=== PATIENT | female | born 1985 | race Caucasian/White ===

== ENCOUNTER 2017-06-18 20:46 | Emergency (ER) | payer BC ==
--- NOTE | 2017-06-18 22:43 | ER Document Report ---
ED General - General Chief Complaint: Ear Pain Stated Complaint: BILATERAL EAR PAIN Time Seen by Provider: 06/18/17 22:34 Notes: Patient is a pleasant 31-year-old female who presents for complaints of congestion in her ears. Patient says that she felt as if her ears are impacted. She bought a type of Q-tips patient is on for cleaning her ears. She feels that her ear canals became more irritated with this now she has pressure and pain behind both ears is worse than the right. No fevers. No vomiting. No cough. No other complaints at this time. TRAVEL OUTSIDE OF THE [place] IN LAST 30 DAYS: No - Related Data Allergies/Adverse Reactions: No Known Allergies Allergy (Verified 06/18/17 21:21) Past Medical History - Social History Smoking Status: Current Every Day Smoker Chew tobacco use (# tins/day): No Frequency of alcohol use: None Drug Abuse: None Family History: Reviewed & Not Pertinent Patient has suicidal ideation: No Patient has homicidal ideation: No Renal/ Medical History: Denies: Hx Peritoneal Dialysis - Immunizations Hx Diphtheria, Pertussis, Tetanus Vaccination: Yes Review of Systems - Review of Systems Notes: My Normal Review Basic REVIEW OF SYSTEMS: CONSTITUTIONAL : Denies fever, chills, or sweats. Denies recent illness. EENT: Ear Pain ALL OTHER SYSTEMS REVIEWED AND NEGATIVE. Physical Exam - Vital signs Vitals: Temp Pulse Resp BP Pulse Ox 98.3 F 85 18 144/94 H 98 06/18/17 21:25 06/18/17 21:25 06/18/17 21:25 06/18/17 21:25 06/18/17 21:25 - Notes Notes: General Appearance: Well nourished, alert, cooperative, no acute distress, no obvious discomfort. Vitals: reviewed, See vital signs table. Head: no swelling or tenderness to the head Eyes: PERRL, EOMI, Conjuctiva clear Mouth: No decreasd moisture Ears: Patient has bilateral cerumen impaction. Throat: No tonsillar inflammation, No airway obstruction, No lymphadenopathy Course - Re-evaluation Re-evalutation: 06/19/17 04:36 Patient has cerumen impaction of both ears. I told her that she should do Debrox eardrops for next several days to help soften and dissolve the wax. Informed her that she return to ER if she is any redness swelling or signs of infection. Patient agrees with plan will be discharged home. I informed her not to use any further physical manipulation of the ear canals or any Q-tips. Dictation of this chart was performed using voice recognition software; therefore, there may be some unintended grammatical errors. - Vital Signs Vital signs: Temp Pulse Resp BP Pulse Ox 98.9 F 85 16 140/98 H 100 06/18/17 23:10 06/18/17 23:10 06/18/17 23:10 06/18/17 23:10 06/18/17 23:10 Discharge - Discharge Clinical Impression: Impacted cerumen Qualifiers: Laterality: bilateral Qualified Code(s): H61.23 - Impacted cerumen, bilateral Condition: Good Disposition: HOME, SELF-CARE Additional Instructions: Please buy over the counter "Debrox" ear drops or ear wax dissolving drops. Apply drops to each ear twice a day for the next 3-4 days and this should provide some relief. Please return tot he ER immediately if you develop redness or swelling to the ears, fevers, or any concerns for infection.
[2017-06-18 23:14] VITALS: BP 140/98
== END 2017-06-18 23:24 | disposition home or self-care (01) ==
LOC: ER 20:46
DX: H61.23 Impacted cerumen, bilateral (principal); H92.03 Otalgia, bilateral; F17.200 Nicotine dependence, unspecified, uncomplicated
CPT/HCPCS: 99282

== ENCOUNTER 2020-02-06 23:51 | Emergency (ER) | payer BC ==
[2020-02-07] MEDS ORDERED: CEFTRIAXONE INJ 1000 MG VIAL IM ONE (00:41)
[2020-02-07] MEDS ORDERED: LIDOCAINE 1% INJ (10 MG/ML) 10 ML MDV INJ ONE (00:41)
[2020-02-07] MEDS ORDERED: DIPH/PERTUSS(ACELL)/TETANUS VAC/PF 0.5 ML SYR (>=10YO) IM ONE (00:41)
[2020-02-07] MEDS ORDERED: SULFAMETHOXAZOLE/TRIMETHOPRIM 800-160 MG TABLET PO ONE (00:42)
--- NOTE | 2020-02-07 00:46 | ER Document Report ---
ED Skin Rash/Insect Bite/Abscs - General Chief Complaint: Insect Bite Stated Complaint: BITE ON LEG, SWOLLEN LEG Time Seen by Provider: 02/07/20 00:41 Notes: CHIEF COMPLAINT: Possible infected insect bite HPI: 34-year-old female otherwise healthy not diabetic presenting for evaluation of a possible infected insect bite. States she was bitten for 5 days ago on the right thigh thought it was initially an insect bite but the redness swelling and discomfort have progressively increased, no fevers. No prior history of skin abscesses ROS: See HPI - all other systems were reviewed and are otherwise negative Constitutional: no fever Integumentary: + rash Allergy: no hives Musculoskeletal: no extremity pain or swelling MEDICATIONS: I agree with the patient medications as charted by the RN. ALLERGIES: I agree with the allergies as charted by the RN. PAST MEDICAL HISTORY/PAST SURGICAL HISTORY: Reviewed and agree as charted by RN. SOCIAL HISTORY: Reviewed and agree as charted by RN. FAMILY HISTORY: No significant familial comorbid conditions directly related to patient complaint EXAM: Reviewed vital signs as charted by RN. CONSTITUTIONAL: Alert and oriented and responds appropriately to questions. Well-appearing; well-nourished HEAD: Normocephalic; atraumatic EYES: Conjunctivae clear, sclerae non-icteric ENT: normal nose; no rhinorrhea; moist mucous membranes NECK: Supple without meningismus CARD: symmetric distal pulses RESP: Normal chest excursion without splinting or tachypnea ABD/GI: non-distended BACK: The back appears normal EXT: Normal ROM in all joints; no cyanosis, no effusions, no edema SKIN: Normal color for age and race; warm; dry; good turgor; there is an erythematous bite site measuring approximately 4 cm x 3 cm to the anterior proximal right thigh. There is another erythematous area medial to this measuring approximately 2 cm x 2 cm. Minimal induration and no definitive fluctuance. There is surrounding erythema measuring 14 cm x 9 cm total diameter across the anterior thigh NEURO: Moves all extremities equally; Motor and sensory function intact PSYCH: The patient's mood and manner are appropriate. Grooming and personal hygiene are appropriate. MDM: 34-year-old female with what appears to be an infected insect bite or possible early abscess. There is no fluctuant area noted under the 2 specific areas that are a darker reddened color. I discussed this with the patient at [facility]. I would be hesitant to incise this area at this time. She does have a surrounding cellulitis. Will update her tetanus status start her on antibiotics here. Patient would prefer to have antibiotics and follow-up in 24 to 48 hours to have the area rechecked or sooner if it goes beyond the marked borders. She does not wish to have incision and drainage tonight if possible TRAVEL OUTSIDE OF THE [place] IN LAST 30 DAYS: No - Related Data Allergies/Adverse Reactions: No Known Allergies Allergy (Verified 06/18/17 21:21) Past Medical History - Social History Smoking Status: Never Smoker Chew tobacco use (# tins/day): No Frequency of alcohol use: None Drug Abuse: None Family History: Reviewed & Not Pertinent Patient has homicidal ideation: No Renal/ Medical History: Denies: Hx Peritoneal Dialysis - Immunizations Hx Diphtheria, Pertussis, Tetanus Vaccination: Yes Physical Exam - Vital signs Vitals: Temp Pulse Resp BP Pulse Ox 98.4 F 94 17 167/98 H 99 02/06/20 23:58 02/06/20 23:58 02/06/20 23:58 02/06/20 23:58 02/06/20 23:58 Course - Vital Signs Vital signs: Temp Pulse Resp BP Pulse Ox 98.4 F 94 17 167/98 H 99 02/07/20 00:39 02/06/20 23:58 02/06/20 23:58 02/06/20 23:58 02/06/20 23:58 Discharge - Discharge Clinical Impression: Cellulitis of leg, right Insect bite, infected Qualifiers: Encounter type: initial encounter Qualified Code(s): W57.XXXA - Bitten or stung by nonvenomous insect and other nonvenomous arthropods, initial encounter Condition: Stable Disposition: HOME, SELF-CARE Instructions: Cellulitis ([facility]) Additional Instructions: Warm heat to the right thigh is much as possible over the next 2 days. Take the antibiotics as prescribed. Motrin or Tylenol for pain. If you have worsened swelling of the area or the erythema extends outside the marked border return for reevaluation as discussed Prescriptions: Sulfamethoxazole/Trimethoprim [Bactrim Ds Tablet] 2 tab PO BID #28 tablet Cephalexin Monohydrate [Keflex 500 mg Capsule] 500 mg PO Q6H 7 Days #28 capsule Referrals: MAT GALINDO MD [ACTIVE STAFF] - Follow up as needed
[2020-02-07 00:59] VITALS: BP 130/74
== END 2020-02-07 00:59 | disposition home or self-care (01) ==
LOC: ER 23:51
DX: S70.361A Insect bite (nonvenomous), right thigh, initial encounter (principal); L03.115 Cellulitis of right lower limb; W57.XXXA Bitten or stung by nonvenomous insect and other nonvenomous arthropods, initial encounter
CPT/HCPCS: 99284; 96372; 90471; 90715; J0696